=== PATIENT | male | born 1950 | race Hispanic/Latino ===

== ENCOUNTER → 2020-03-16 | Day surgery (SDC) | payer OTHER ==
[2020-03-11 10:42] LABS: BASOPHILS # (AUTO) 0.1 (0.0-0.1); BASOPHILS % 0.7 % (0.0-1.0); EOSINOPHILS # (AUTO) 0.1 (0.0-0.4); EOSINOPHILS % 1.5 % (0.0-6.0); HEMATOCRIT 47.8 % (38.2-49.6); HEMOGLOBIN 14.4 g/dL (14.0-18.0); LYMPHOCYTES # (AUTO) 2.3 (1.0-3.2); LYMPHOCYTES % 25.4 % (18.0-39.1); MEAN CORPUSCULAR HEMOGLOBIN 25.4 pg (28-32); MEAN CORPUSCULAR HGB CONC 30.1 g/dL (31-35); MEAN CORPUSCULAR VOLUME 84.3 fL (81-99); MONOCYTES # (AUTO) 0.3 (0.2-0.8); MONOCYTES % 3.7 % (4.4-11.3); NEUTROPHILS # (AUTO) 6.3 (2.1-6.9); NEUTROPHILS % 68.4 % (38.7-80.0); PLATELET COUNT 230 x10e3/uL (140-360); RED BLOOD COUNT 5.67 x10e6/uL (4.3-5.7); RED CELL DISTRIBUTION WIDTH 15.4 % (11.7-14.4)
[2020-03-11 11:06] LABS: ALBUMIN 3.9 g/dL (3.5-5.0); ANION GAP 12.7 mmol/L (8-16); CALCIUM 10.6 mg/dL (8.4-10.2); CREATININE, SERUM 1.38 mg/dL (0.72-1.25); POTASSIUM 4.7 mmol/L (3.5-5.1)
[~2020-03-16] VITALS: Ht 165.1 cm; Wt 106.6 kg
[2020-03-16] VITALS (7 sets, daily range): BP systolic 112–128; BP diastolic 71–79
[~2020-03-16] MED LIST: ATORVASTATIN CA10 MG PO; BENZOCAINE 20% SPR 60 ML CAN ONE; BIVALRIUDIN 250 MG/VIAL VIAL IV ONE; ETOMIDATE 2 MG/ML 10 ML INJ IV ONE; FENOFIBRATE145 MG PO; FENTANYL CITRATE/PF 100MCG/2 ML INJ ONE; GLIMEPIRIDE2 MG PO; HEPARIN SOD/SOD CHLORIDE 2,000 ML ONE; IOPAMIDOL 370 MG/ML 200 ML INFUS..BTL INJ ONE; LANTUS 3ML100 UNITS/ SC; LEVOTHYROXINE125 MCG PO; LIDOCAINE HCL 2% LOCAL 20 ML VIAL ONE; LIDOCAINE HCL 2% LOCAL INJ 5 ML SDV VIAL INJ ONE; LISINOPRIL10 MG PO; LISINOPRIL5 MG PO; METFORMIN HCL500 M2 PO; METFORMIN HCL500 MG PO; METOPROLOL SUCC50 MG PO; MIDAZOLAM HCL 2 MG/2 ML VIAL ONE; PROPOFOL IV EMULSION 10 MG/ML 20 ML VIAL ONE; SERTRALINE HCL50 MG PO; SODIUM CHLORIDE 0.9% 1000ML 1,000 ML ONE; SODIUM CHLORIDE 0.9% 50ML 0 ML ONE; VERAPAMIL HCL 2.5 MG/ML 2 ML VIAL ONE
--- NOTE | 2020-03-16 11:00 | NUR ---
pt in CCL 10, prepped for procedure. Alert oriented and appropriate, PERRLA, respirations even and unlabored to room air. Pulses x4 extremities equal and palpable. Cap fill brisk < 3 sec. + modified barbeau and neurovascular function of right wrist Skin warm and dry integrity appears intact in general. IV 20g x1 started to left mid posterior forearm and presents healthy w/o s/s of infiltration or complaint. Abdomen soft and supple. pt offered toileting, denies need to urinate or defecate. Personal affects with patient. Family contact obtained and left till end of procedure. Pt and family verbalizes understanding of POC. Educated cash applications associate light use . Pre-op meds due to pending MAC. bed low and locked, side rails up x2 and call light at side. Await[place] physician arrival [place] [place]
--- NOTE | 2020-03-16 19:20 | Operative Report ---
DATE OF PROCEDURE: 03/16/2020 SURGEON: Tito Carty MD PROCEDURES PERFORMED: 1. Conscious sedation administration, hemodynamic and neurological monitoring and recovery by metallurgical lab technician RN, supervision by , 35 minutes. 2. Ultrasound-guided access into the right radial artery with sheath placement. 3. Left heart catheterization, selective coronary angiography. 4. Deployment of right wrist TR band. COMPLICATIONS: None. RECOMMENDATIONS: Surgical aortic valve replacement. DESCRIPTION OF PROCEDURE: Access was obtained in the right radial artery. Using ultrasound guidance, a 5-Bengali sheath was placed. Coronary angiography demonstrated moderate disease in the left main, coronary artery disease heavy calcification, proximal left anterior descending artery 50% stenosis. Mid left anterior descending artery was completely occluded. Grade 1/2 collaterals from the right coronary system filled the mid distal left anterior descending artery. Circumflex, proximal and mid 90% stenosis including the obtuse marginal branch, which also had 90% stenosis. Right coronary artery had moderate disease, 50% diffuse stenosis, heavily calcified. No intervention necessary at this point. Right wrist TR band was applied. The patient discharged home the same day. Ttio Carty MD KSB/MODL /[id number]
== END | disposition home or self-care (01) ==
LOC: OR 10:01
PROVIDERS: ATTEND Internal Medicine Interventional Cardiology
DX: I25.119 Atherosclerotic heart disease of native coronary artery with unspecified angina pectoris (principal); I35.0 Nonrheumatic aortic (valve) stenosis; G47.33 Obstructive sleep apnea (adult) (pediatric); E11.22 Type 2 diabetes mellitus with diabetic chronic kidney disease; I12.9 Hypertensive chronic kidney disease with stage 1 through stage 4 chronic kidney disease, or unspecified chronic kidney disease; N18.9 Chronic kidney disease, unspecified; E03.9 Hypothyroidism, unspecified; E78.5 Hyperlipidemia, unspecified; Z01.812 Encounter for preprocedural laboratory examination; Z11.59 Encounter for screening for other viral diseases; Z79.4 Long term (current) use of insulin; Z79.84 Long term (current) use of oral hypoglycemic drugs; Z68.39 Body mass index [BMI] 39.0-39.9, adult
CPT/HCPCS: 36415; 80053; 85025; 93005; 93307; 93312; 93320; 93325; 93454; 99152; 99153; C1769; C1887; J0583; J2001; J2250; J3010; J7030; Q9967; U0002